=== PATIENT | male | born 1950 ===

== ENCOUNTER 2018-05-09 12:26 | Outpatient (CLI) | payer MEDICARE, OTHER ==
[2018-05-09] MEDS ORDERED: IOPAMIDOL-300 50 ML VIAL ONE (12:33)
[2018-05-09] MEDS ORDERED: IOPAMIDOL-300 100 ML VIAL ONE (12:34)
[2018-05-09] MEDS ORDERED: IOPAMIDOL-300 50 ML VIAL PO ONE (13:59)
[2018-05-09] MEDS ORDERED: IOPAMIDOL-300 100 ML VIAL IVP ONE (13:59)
--- NOTE | 2018-05-09 14:32 | CT Report ---
Reason: UNSPECIFIED ABDOMINAL PAIN Procedure Date: 05/09/2018 Accession Number: [id number] / [id number] Procedure: CT - Abdomen/Pelvis W/ CPT Code: FULL RESULT: EXAM: CT ABDOMEN AND PELVIS EXAM DATE: 05/09/2018 01:54 PM. CLINICAL HISTORY: UNSPECIFIED ABDOMINAL PAIN. COMPARISONS: None. TECHNIQUE: Routine helical CT imaging was performed through the abdomen and pelvis. IV contrast: ISOVUE 300 100mL. Enteric contrast: Yes. Reconstructions: Coronal and sagittal. In accordance with CT protocol optimization, one or more of the following dose reduction techniques were utilized for this exam: automated exposure control, adjustment of mA and/or KV based on patient size, or use of iterative reconstructive technique. FINDINGS: Lung Bases: Unremarkable. Liver: 2.2 cm low attenuating focus in the left lobe measures 17 HU, likely a cyst. Normal contour. Gallbladder/Bile Ducts: Unremarkable. Spleen: Normal. Pancreas: Normal. Adrenal Glands: Normal. Kidneys: Normal. No masses or hydronephrosis. Peritoneal Cavity/Bowel: No free fluid, free air or adenopathy. No masses or acute inflammatory process. There are colon diverticula without evidence of diverticulitis. Pelvic Organs: The bladder and visualized pelvic organs are within normal limits. Vasculature: No aneurysms or other significant abnormality. Bones: No bone lesions IMPRESSION: There are no CT findings to account for the patient's symptoms [facility]
== END 2018-05-09 12:27 | disposition home or self-care (01) ==
LOC: DI 12:26
PROVIDERS: ATTEND Specialist
DX: R10.9 Unspecified abdominal pain (principal)
CPT/HCPCS: 74177; Q9967